=== PATIENT | female | born 1980 | race Caucasian/White ===

== ENCOUNTER 2018-01-31 15:51 | Emergency (ER) | payer MEDICAID, SELFPAY ==
[2018-01-31] MEDS ORDERED: Lidocaine 1% w/Epinephrine 1:100K 20 ML VIAL ONE (16:17)
[2018-01-31] MEDS ORDERED: Adacel (T-DAP) 0.5 ML VIAL ONE (16:17)
--- NOTE | 2018-01-31 16:46 | CT ---
CT ORBITS NONCONTRAST: INDICATIONS: Left periorbital trauma. Injury with pain. FINDINGS: There is added density and irregularity of the left preseptal soft tissues, indicating laceration and hematoma. An underlying comminuted fracture does involve the junction of the lateral aspect of the roof and the superior aspect of the lateral wall of the left orbit. There is no significant retrobul bar hematoma. The intraocular lenses are intact. IMPRESSION: Comminuted fracture involving the junction of the roof and the lateral wall of the left orbit with ov erlying soft tissue laceration and hematoma. POS: [facility]
[2018-01-31] MEDS ORDERED: Ketorolac Tromethamine 30 MG/ML VIAL ONE (18:49)
== END 2018-01-31 19:44 | disposition home or self-care (01) ==
LOC: ERS 15:51
DX: S02.82XA Fracture of other specified skull and facial bones, left side, initial encounter for closed fracture (principal); S02.19XA Other fracture of base of skull, initial encounter for closed fracture; S01.81XA Laceration without foreign body of other part of head, initial encounter; F17.210 Nicotine dependence, cigarettes, uncomplicated; Z71.6 Tobacco abuse counseling; W21.07XA Struck by softball, initial encounter
CPT/HCPCS: 12014; 70480; 90471; 90715; 96374; 99406; J1885; J2001